=== PATIENT | male | born 1960 | race African-American/Black ===

== ENCOUNTER 2017-08-28 17:05 | Emergency (ER) | payer OTHER ==
[~2017-08-28] VITALS: Ht 177.8 cm; Wt 99.8 kg
[2017-08-28 18:11] VITALS: BP 143/93
== END 2017-08-28 20:58 | disposition home or self-care (01) ==
LOC: ER 17:08
DX: M79.605 Pain in left leg (principal); I10 Essential (primary) hypertension
CPT/HCPCS: 82962

== ENCOUNTER 2021-04-09 22:55 | Emergency (ER) | payer MEDICAID, OTHER ==
[~2021-04-09] VITALS: Ht 177.8 cm; Wt 93.0 kg
[2021-04-10 04:23] VITALS: BP 121/52
[2021-04-10] MEDS ORDERED: BACITRACIN TOP OINT 1 UD PKG TOP ONE (06:00)
== END 2021-04-10 09:41 | disposition home or self-care (01) ==
LOC: ER 22:55
DX: S61.211A Laceration without foreign body of left index finger without damage to nail, initial encounter (principal); I10 Essential (primary) hypertension; Z90.89 Acquired absence of other organs; W26.0XXA Contact with knife, initial encounter; Y93.89 Activity, other specified; Y92.89 Other specified places as the place of occurrence of the external cause; Y99.8 Other external cause status
CPT/HCPCS: 12001

== ENCOUNTER 2021-04-19 09:21 | Emergency (ER) | payer MEDICAID ==
[~2021-04-19] VITALS: Ht 177.8 cm; Wt 93.0 kg
[2021-04-19 09:47] VITALS: BP 134/86
== END 2021-04-19 10:38 | disposition home or self-care (01) ==
LOC: ER 09:21
DX: S61.211D Laceration without foreign body of left index finger without damage to nail, subsequent encounter (principal); I10 Essential (primary) hypertension; X58.XXXD Exposure to other specified factors, subsequent encounter

== ENCOUNTER 2022-12-08 23:01 | Emergency (ER) | payer MEDICAID ==
[~2022-12-08] VITALS: Ht 177.8 cm; Wt 93.3 kg
[2022-12-09 00:30] VITALS: PULSE 65; RESP 17; O2SAT 96
[2022-12-09 01:23] LABS: Albumin 3.5 g/dL (3.4-5.0); BUN/Creatinine Ratio 13.1 (10.0-20.0); Bilirubin, Total 0.5 mg/dL (0.2-1.0); Potassium 3.9 mmol/L (3.5-5.1); Total Protein 7.6 g/dL (6.4-8.2)
[2022-12-09 01:27] LABS: Basophils # (auto) 0 10 ^3/uL (0-0.2); Basophils % (auto) 0.6 % (0.0-2.0); Eosinophils # (auto) 0 10 ^3/uL (0-0.8); Eosinophils % (auto) 0.2 % (0.0-7.0); Hematocrit 44.1 % (41.0-53.0); Hemoglobin 15.3 g/dL (13.5-17.5); Lymphocytes # (auto) 0.4 10 ^3/uL (0.4-5.4); Lymphocytes % (auto) 7.2 % (10.0-50.0); Mean Corpuscular Hgb Conc. 34.7 g/dL (32.0-36.0); Mean Corpuscular Volume 92.3 fL (80.0-100.0); Monocytes # (auto) 0.9 10 ^3/uL (0-1.3); Monocytes % (auto) 16.6 % (0.0-12.0); Neutrophils % (auto) 75.4 % (37.0-80.0); Nucleated Red Blood Cells % 0.1 %; Red Blood Cells 4.78 10^6/uL (4.5-5.90); Red Cell Distribution Width 12.6 % (11.8-14.3); White Blood Cell 5.3 10^3/uL (4.4-10.8)
[2022-12-09] MEDS ORDERED: cefTRIAXone 1GM/50ML D5W 50 ML IV ONE (01:45)
[2022-12-09] MEDS ORDERED: SODIUM CHLORIDE 0.9% 1,000 ML IV ONE (01:45)
[2022-12-09 01:48] LABS: Urine Bacteria FEW /hpf (None Seen); Urine Blood 1+ /uL (Negative); Urine Specific Gravity 1.011 (1.001-1.035); Urine WBC <1 /hpf (0 - 3)
[2022-12-09 06:00] VITALS: BP 116/58; PULSE 59; RESP 18; TEMP 98.8; O2SAT 93
[2022-12-09] MEDS ORDERED: ALBUAER3 IN (06:07)
[2022-12-09] MEDS ORDERED: PRED20TA2 PO (06:07)
[2022-12-09] MEDS ORDERED: AZIT-43 PO (06:07)
== END 2022-12-09 06:39 | disposition home or self-care (01) ==
LOC: ER 23:03
DX: U07.1 COVID-19 (principal); R50.9 Fever, unspecified; M19.90 Unspecified osteoarthritis, unspecified site; I10 Essential (primary) hypertension; F15.90 Other stimulant use, unspecified, uncomplicated; Z90.89 Acquired absence of other organs
CPT/HCPCS: 36415; 70450; 71045; 80053; 81001; 82962; 83605; 83690; 84484; 85025; 87040; 87426; 93005; 96365; 99285; J0696

== ENCOUNTER 2023-09-03 01:27 | Emergency (ER) | payer MEDICAID ==
[~2023-09-03] VITALS: Ht 177.8 cm; Wt 93.1 kg
[~2023-09-03 01:27] MED LIST: ALBUAER3 IN; AZIT-43 PO; PRED20TA2 PO
[2023-09-03 01:40] VITALS: BP 136/76; PULSE 65; RESP 18; TEMP 98
[2023-09-03 02:11] LABS: Urine Bacteria None Seen /hpf (None Seen)
[2023-09-03 02:16] LABS: Urine Blood TRACE /uL (Negative); Urine Clarity Clear (Clear); Urine Color Light-Yellow (Yellow); Urine Protein, UAD Negative (Negative); Urine Urobilinogen Normal (Negative); Urine WBC <1 /hpf (0 - 3)
[2023-09-03 03:49] VITALS: O2SAT 97
== END 2023-09-03 06:05 | disposition home or self-care (01) ==
LOC: ER 01:27
DX: R35.0 Frequency of micturition (principal); I10 Essential (primary) hypertension; M19.90 Unspecified osteoarthritis, unspecified site; F15.90 Other stimulant use, unspecified, uncomplicated; Z98.890 Other specified postprocedural states; Z79.899 Other long term (current) drug therapy
CPT/HCPCS: 81001